=== PATIENT | female | born 1950 | race Caucasian/White ===

== ENCOUNTER 2018-12-29 09:25 | Inpatient (IN) | payer MEDICARE, BC ==
[~2018-12-29] VITALS: Ht 162.6 cm; Wt 111.7 kg
[2018-12-29] MEDS ORDERED: ASPIRIN 81 MG TAB.CHEW PO ONE (09:30)
[2018-12-29 10:01] LABS: BASO % 1 % (0-3); EOS # 0.2 x10^3/uL (0.0-0.7); EOS % 4 % (0-3); HEMATOCRIT 39.5 % (36.0-47.0); HEMOGLOBIN 13.3 g/dL (12.0-15.5); LYMPH # 1.2 x10^3/uL (1.0-4.8); LYMPH % 24 % (24-48); MEAN CORPUSCULAR HEMOGLOBIN 31 pg (25-35); MEAN CORPUSCULAR HGB CONC 34 g/dL (31-37); MEAN CORPUSCULAR VOLUME 93 fL (79-100); MONO # 0.6 x10^3/uL (0.0-1.1); MONO % 12 % (0-9); NEUT # 3.1 x10^3uL (1.8-7.7); NEUT % 60 % (31-73); PLATELET COUNT 264 x10^3/uL (140-400); RED BLOOD COUNT 4.23 x10^6/uL (3.50-5.40); RED CELL DISTRIBUTION WIDTH 13.7 % (11.5-14.5); WHITE BLOOD COUNT 5.2 x10^3/uL (4.0-11.0)
--- NOTE | 2018-12-29 10:02 | PHYS DOC ---
Adult General Chief Complaint Chief Complaint: CHEST PAIN HPI HPI 68-year-old female presents with chest tightness since last night. Just before bed, patient had a mild tightness in her central chest. She decided not to come to the emergency room but to get a good night sleep. She also had elevated blood pressure. This morning, the patient continues to have elevated blood pressure and the chest tightness a bit worse. It is coming and going. It is mild to moderate in intensity. She denies diaphoresis or shortness of breath. He does not currently have pain. She has been stable on her medications for at least 3 months. She did run out of her Lasix 1 day ago and has missed a dose. She has noticed increased swelling. She denies fever or chills. Review of Systems Review of Systems Constitutional: Denies fever or chills [] Eyes: Denies change in visual acuity, redness, or eye pain [] HENT: Denies nasal congestion or sore throat [] Respiratory: Denies cough or shortness of breath [] Cardiovascular: No additional information not addressed in HPI [] GI: Denies abdominal pain, nausea, vomiting, bloody stools or diarrhea [] : Denies dysuria or hematuria [] Musculoskeletal: Denies back pain or joint pain [] Integument: Denies rash or skin lesions [] Neurologic: Denies headache, focal weakness or sensory changes [] Endocrine: Denies polyuria or polydipsia [] All other systems were reviewed and found to be within normal limits, except as documented in this note. Current Medications Current Medications Current Medications Medications (Trade) Dose Ordered Sig/[facility] Start Time Stop Time Status Last Admin Dose Admin Aspirin (Children'S Aspirin) 324 mg 1X ONCE 12/29/18 09:30 12/29/18 09:35 DC 12/29/18 09:34 324 MG Allergies Allergies Allergies Coded Allergies Type Severity Reaction Last Updated Verified No Known Drug Allergies 12/29/18 No Physical Exam Physical Exam Constitutional: Well developed, obese, well nourished, no acute distress, non- toxic appearance. [] HENT: Normocephalic, atraumatic, bilateral external ears normal, oropharynx moist, no oral exudates, nose normal. [] Eyes: PERRLA, EOMI, conjunctiva normal, no discharge. [] Neck: Normal range of motion, no tenderness, supple, no stridor. [] Cardiovascular:Heart rate regular rhythm, no murmur [] Lungs & Thorax: Bilateral breath sounds clear to auscultation [] Abdomen: Bowel sounds normal, soft, no tenderness, no masses, no pulsatile masses. [] Skin: Warm, dry, no erythema, no rash. [] Back: No tenderness, no CVA tenderness. [] Extremities: No tenderness, no cyanosis, no clubbing, ROM intact, 1+ lower leg edema bilaterally. [] Neurologic: Alert and oriented X 3, normal motor function, normal sensory function, no focal deficits noted. [] Psychologic: Affect normal, judgement normal, mood normal. [] Current Patient Data Vital Signs Vital Signs Date Time Temp Pulse Resp B/P (MAP) Pulse Ox O2 Delivery O2 Flow Rate FiO2 12/29/18 09:55 60 16 166/73 (104) 95 Room Air EKG EKG Paced rhythm, rate 61, normal axis, no ST elevations or depressions[] Radiology/Procedures Radiology/Procedures [] Impressions: PORTABLE CHEST 1V History: Chest pain Comparison: None. Findings: No consolidation or pleural effusion. Normal heart size. Left-sided pacemaker. No pneumothorax. Impression: 1. No acute cardiopulmonary process. Electronically signed by: Vladimir Huerta DO (12/29/2018 11:04 AM) [id number] DICTATED AND SIGNED BY: VLADIMIR HUERTA DO DATE: 12/29/18 1104 CC: IGNACIO ARMENDARIZ DO; PCP,CANDIE ~ Course & Med Decision Making Course & Med Decision Making Pertinent Labs and Imaging studies reviewed. (See chart for details) The patient's chest x-rays negative for acute findings. Her labs are unremarkable. Her troponin is negative. EKG does not show significant findings. Her her score is 5. Given this fact, I will admit the patient for chest pain rule out. I spoke with Dr. Peter and he has accepted the patient for admission. The patient is in agreement with this plan. Dragon Disclaimer Dragon Disclaimer This electronic medical record was generated, in whole or in part, using a voice recognition dictation system. The HEART Score for CP Pts HEART Score for Chest Pain: HEART Score for Chest Pain Response (Comments) Value History Moderately Suspicious 1 ECG Nonspecific Repolarizatio 1 Age > 65 2 Risk Factors 1 or 2 Risk Factors 1 Troponin < Normal Limit 0 Total 5 Risk Factors: Risk Factors: DM, Current or recent (<one month) smoker, HTN, HLP, family history of CAD, obesity. Risk Scores: Score 0 - 3: 2.5% MACE over next 6 weeks - Discharge Home Score 4 - 6: 20.3% MACE over next 6 weeks - Admit for Clinical Observation Score 7 - 10: 72.7% MACE over next 6 weeks - Early Invasive Strategies Departure Departure: Impression: Primary Impression: Chest pain Disposition: 09 ADMITTED INPATIENT Admitting Physician: Cindy Peter Condition: STABLE Referrals: PCP,NO (PCP) Problem Qualifiers Primary Impression: Chest pain Chest pain type: precordial pain Qualified Codes: R07.2 - Precordial pain IGNACIO ARMENDARIZ DO Dec 29, 2018 10:02
[2018-12-29 10:25] LABS: ALBUMIN 3.2 g/dL (3.4-5.0); CALCIUM 8.9 mg/dL (8.5-10.1); CREATININE 1.3 mg/dL (0.6-1.0); GFR 40.5; POTASSIUM 3.8 mmol/L (3.5-5.1); TOTAL BILIRUBIN 0.6 mg/dL (0.2-1.0); TOTAL PROTEIN 6.3 g/dL (6.4-8.2)
--- NOTE | 2018-12-29 11:07 | RAD ---
PORTABLE CHEST 1V History: Chest pain Comparison: None. Findings: No consolidation or pleural effusion. Normal heart size. Left-sided pacemaker. No pneumothorax. Impression: 1. No acute cardiopulmonary process. Electronically signed by: Vladimir Trent DO (12/29/2018 11:04 AM) [facility]
[2018-12-29 11:40] LABS: CLARITY,URINE CLOUDY; COLOR,URINE YELLOW
[2018-12-29 11:41] LABS: BACTERIA,URINE MANY /HPF (0-FEW); BILIRUBIN,URINE NEG (NEG); GLUCOSE,URINE NEG (NEG); NITRITE,URINE POS (NEG); SQUAMOUS EPITHELIAL CELL,UR FEW /LPF; UROBILINOGEN,URINE 0.2 mg/dL (0.2 mg/dL)
[2018-12-29] MEDS ORDERED: NITROGLYCERIN SUBLINGUAL 0.4 MG BOTTLE OF 25. SL PRN (11:45)
[2018-12-29] MEDS ORDERED: ONDANSETRON PF 4 MG/2 ML VIAL. IV PRN (11:45)
[2018-12-29] MEDS ORDERED: cefTRIAXone SODIUM 1 GM VIAL ONE (12:02)
[2018-12-29] MEDS ORDERED: IV NORMAL SALINE 50ML 50 ML ONE (12:02)
[2018-12-29 13:07] VITALS: BP 183/101
[2018-12-29] MEDS ORDERED: METO-247 PO (13:47)
[2018-12-29] MEDS ORDERED: GABA100C6 PO (13:47)
[2018-12-29] MEDS ORDERED: ATOR10TA60 PO (13:47)
[2018-12-29] MEDS ORDERED: AMIO100T4 PO (13:47)
[2018-12-29] MEDS ORDERED: DULO60CA98 PO (13:47)
[2018-12-29] MEDS ORDERED: RIVA20TA2 PO (13:47)
[2018-12-29] MEDS ORDERED: FURO20TA3 PO (13:47)
--- NOTE | 2018-12-29 15:25 | NUR ---
NSG NOTE; ADMISSION ADMTI TO ROOM 122 AT 1230 FROM ED VIA CART ACCOMP BY EMS PERSONNEL PT C/O CHEST PRESSURE, SOA AND DIZZINESS SINCE LAST DARSHAN WHICH REOCCURRED THIS AM SO CAME TO ED SHE HAS A CARDIAC HISTORY NO C/O CHEST PAIN AT THIS TIME
[2018-12-29] MEDS: GABAPENTIN 100 MG CAPSULE. PO SCH ×2 (15:59→19:44)
[2018-12-29] MEDS: FUROSEMIDE 20 MG TABLET PO SCH (15:59)
[2018-12-29] MEDS: DULoxetine HCL 60 MG CAPSULE.DR PO SCH (15:59)
[2018-12-29] MEDS: RIVAROXABAN 10 MG TABLET. PO SCH (15:59)
[2018-12-29] MEDS: AMIODARONE HCL 200 MG TABLET PO SCH (16:00)
--- NOTE | 2018-12-29 16:27 | HP ---
ADMIT DATE: 12/29/2018 HISTORY OF PRESENT ILLNESS: The patient is a 68-year-old female patient, who was brought to the Emergency Room with a complaint of chest pain, chest pressure that started this morning. Her blood pressure was high last night and continued to be high this morning. She had also some shortness of breath and she was diaphoretic, dizzy, but denied any nausea or vomiting. Denied any radiation of the pain and was brought to the Emergency Room for further evaluation and treatment. By the time she arrived, her pain has largely subsided. Her medication has not changed over the last 3 months. She was evaluated in the Emergency Room. Her EKG showed that her heart rate was 61. It was a paced rhythm with normal axis, no ST elevation or depression. Her chest x-ray was unremarkable. Her first set of cardiac enzyme was normal at less than 0.017, and was admitted to do 2 more sets of cardiac enzymes, check a fasting lipid profile and consult the cardiology team. PAST MEDICAL HISTORY: Significant for hypertension, hyperlipidemia, atrial fibrillation/flutter, sick sinus syndrome, status post pacemaker placement and she has also obstructive sleep apnea, on CPAP, chronic low back pain, degenerative disk disease and generalized osteoarthritis and also bilateral cataract. PAST SURGICAL HISTORY: Significant for total abdominal hysterectomy, bilateral salpingo-oophorectomy, back surgery, uvulopalatoplasty and she underwent tonsillectomy and 3 cardioversion. ALLERGIES: She has no known drug allergies. MEDICATIONS: She is currently on following medications: She is on rivaroxaban 20 mg once a day, amiodarone 100 mg daily, atorvastatin, calcium 10 mg at bedtime, metoprolol succinate 100 mg once a day, gabapentin 100 mg twice a day, duloxetine 60 mg once a day, furosemide 20 mg once a day. FAMILY HISTORY: She has a brother and a sister who with COPD. One brother was electrocuted. Her mother of complication of cerebrovascular accident. Her father is , but does not know the reason for her . SOCIAL HISTORY: She is , has no children. She never smoked, does not drink alcohol or use any recreational drugs. 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 REVIEW OF SYSTEMS: The patient denied any blurring of vision, cataract, glaucoma or macular degeneration. Denied any earache, tinnitus or sensorineural deafness. Denied any nosebleeds, stuffy nose or postnasal drip. Denied any sore throat, sore tongue, toothache, hoarseness of voice or difficulty swallowing. Denied any nausea, vomiting, diarrhea or constipation. Denied any hematemesis, melena or hematochezia. Denied any dysuria, frequency, hematuria. Did complain of chest pain, shortness of breath as well as dizziness. PHYSICAL EXAMINATION: GENERAL: When I examined her, she looked well and was clearly in no apparent respiratory distress. No pallor, jaundice, cyanosis or thyromegaly. No jugular venous distention. No lower limb edema. VITAL SIGNS: Her heart rate was 60, blood pressure was 166/73, temperature was 97.9, respiratory rate was 18 and oxygen saturation was 97%. HEAD, EYES, EARS, NOSE AND THROAT: Showed normocephalic, atraumatic. NECK: Supple. HEART: Showed normal first and second heart sounds. No gallop or murmur. CHEST: Clear to auscultation. No crepitation or rhonchi. ABDOMEN: Distended, soft, nontender. NEUROLOGIC: She was awake, alert, responding appropriately. All cranial nerves intact. EXTREMITIES: She moves extremities without difficulty. She ambulates without assistance or assistive devices. LABORATORY WORK: Her lab work showed a serum sodium 144, potassium 3.8, chloride 107, bicarbonate 26, anion gap of 11, BUN 13, creatinine 1.3, estimated GFR was 40 mL per minute. Her glucose was 126, calcium was 8.9. Total bilirubin, AST, ALT, alkaline phosphatase slightly elevated. Her beta natriuretic peptide was 147. Total protein was 6.3, albumin 3.2. First set of cardiac enzymes showed troponin to be less than 0.017. Her white cell count was 5200, hemoglobin 13, hematocrit 39, MCV 93, and platelet count 264,000 with normal manual differential. Urinalysis was unremarkable and chest x-ray showed that the patient has no consolidation, pleural effusion, normal heart size. Left-sided pacemaker, no pneumothorax. Plan is to do 2 more sets of cardiac enzymes, check her fasting lipid profile and consult the cardiology team. CALIN FELICIANO MD DR: ALEXI/risa JOB#: [id number] / [id number]
[2018-12-29 19:44] VITALS: BP 181/91
[2018-12-29] MEDS: METOPROLOL SUCC 24HR ER 50 MG TAB.ER.24H. PO SCH (19:44)
[2018-12-29] MEDS: ATORVASTATIN CALCIUM 10 MG TABLET. PO SCH (19:44)
[2018-12-29 20:18] VITALS: BP 167/84
[2018-12-29] MEDS ORDERED: ACETAMINOPHEN 325 MG TABLET PO PRN (21:15)
[2018-12-29 22:40] VITALS: BP 166/79
[2018-12-29 22:41] VITALS: BP 169/102
[2018-12-29 23:32] VITALS: BP 189/98
[2018-12-29] MEDS ORDERED: hydrALAZINE 20 MG/ML VIAL. IV PRN (23:45)
[2018-12-30 01:03] VITALS: BP 146/73
--- NOTE | 2018-12-30 03:50 | EKG ---
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
[2018-12-30 05:51] VITALS: BP 148/79
--- NOTE | 2018-12-30 08:23 | PDOC2 ---
MACHELLE SALTER SEED CORE OPERATOR 12/30/18 0823: CARDIAC CONSULT DATE OF CONSULT Date Of Consult DATE: 12/30/18 TIME: 08:20 REASON FOR CONSULT Reason for Consult Chest pain REFERRING PHYSICIAN Referring Physician Dr. Peter SOURCE Source: Chart review, Patient HPI History of Present Illness This is a 68 yo female who presented with complaints of chest pain. Patient reports pain began Saturday night. Describes as tightness in her central chest. Associated with shortness of breath, diaphoresis, and dizziness. No palpitations. Has a history of AFIB s/p multiple cardioversions and ablations. [place] as she normally does when she goes back into AFIB. Decided to come to the ED for further evaluation and treatment. Pain resolved in the ED and has no pain further since. EKG upon arrival read as AFIB, but appears to be SR. Blood pressure also elevated upon arrival. Follows with [facility]. Dr. Nj and Dr. Graves. Has had swelling for the last 3 weeks in her hands and lower ex tremities. Primary fork lift technician increased her lasix to daily from QOD, but has not had any significant improvement in her edema. She ran out of her Lasix therapy this past Saturday. Reports having stress test about a year ago that she reports as normal. Echo was conducted last week at [facility]. No previous heart cath. Moved her from [place] 3 months ago. Is presently residing with nephew in [place] while awaiting her house to be ready in [place]. PAST MEDICAL HISTORY Cardiovascular: AFIB (s/p CV and ablation ), HTN, hyperipidemia Pulmonary: Other (SIMRAN) Musculoskeletal: Other (chronic back pain) PAST SURGICAL HISTORY Past Surgical History: Pacemaker FAMILY HISTORY Family History: Stroke SOCIAL HISTORY Smoke: No ALCOHOL: occassional Drugs: None Lives: with Family CURRENT MEDICATIONS Current Medications Current Medications Aspirin (Children'S Aspirin) 324 mg 1X ONCE PO Last administered on 12/29/18at 09:34; Start 12/29/18 at 09:30; Stop 12/29/18 at 09:35; Status DC Ondansetron HCl (Zofran) 4 mg PRN Q4HRS PRN IV NAUSEA/VOMITING; Start 12/29/18 at 11:45; Stop 12/30/18 at 11:44 Nitroglycerin (Nitrostat) 0.4 mg PRN Q5MIN PRN SL CHEST PAIN; Start 12/29/18 at 11:45; Stop 12/30/18 at 11:44 Ceftriaxone Sodium 1 gm/ Sodium Chloride 50 ml @ 100 mls/hr 1X ONCE IV Last administered on 12/29/18at 12:07; Start 12/29/18 at 12:00; Stop 12/29/18 at 12:2 9; Status DC Sodium Chloride 50 ml @ As Directed STK-MED ONCE .ROUTE ; Start 12/29/18 at 12:02; Stop 12/29/18 at 12:02; Status DC Ceftriaxone Sodium (Rocephin) 1 gm STK-MED ONCE .ROUTE ; Start 12/29/18 at 12:02; Stop 12/29/18 at 12:02; Status DC Atorvastatin Calcium (Lipitor) 10 mg HS PO Last administered on 12/29/18at 19:44; Start 12/29/18 at 21:00 Duloxetine HCl (Cymbalta) 60 mg DAILY PO Last administered on 12/29/18at 15:59; Start 12/29/18 at 15:00 Furosemide (Lasix) 20 mg DAILY PO Last administered on 12/29/18at 15:59; Start 12/29/18 at 15:00 Gabapentin (Neurontin) 100 mg BID PO Last administered on 12/29/18at 19:44; Start 12/29/18 at 15:00 Amiodarone HCl (Cordarone) 100 mg DAILY PO Last administered on 12/29/18at 16:00; Start 12/29/18 at 15:00 Metoprolol Succinate (Toprol Xl) 100 mg BID PO Last administered on 12/29/18at 19:44; Start 12/29/18 at 21:00 Rivaroxaban (Xarelto) 20 mg DAILY16 PO Last administered on 12/29/18at 15:59; Start 12/29/18 at 16:00 Acetaminophen (Tylenol) 650 mg PRN Q6HRS PRN PO PAIN / TEMP Last administered on 12/30/18at 00:12; Start 12/29/18 at 21:15 Hydralazine HCl (Apresoline) 20 mg PRN Q4HRS PRN IV ELEVATED BP, SEE COMMENTS Last administered on 12/30/18at 00:12; Start 12/29/18 at 23:45 Active Scripts Active Reported Furosemide 20 Mg Tablet 1 Tab PO DAILY Atorvastatin Calcium 10 Mg Tablet 1 Tab PO HS Amiodarone Hcl 100 Mg Tablet 1 Tab PO DAILY Metoprolol Succinate ( Xl ) (Metoprolol Succinate) 100 Mg Tab.er.24h 1 Tab PO BID Gabapentin 100 Mg Capsule 1 Tab PO BID Duloxetine Hcl 60 Mg Capsule.dr 1 Tab PO DAILY Xarelto (Rivaroxaban) 20 Mg Tablet 1 Tab PO DAILY ALLERGIES Allergies: Coded Allergies: No Known Drug Allergies (Unverified , 12/29/18) ROS Review of Systems 14 point ROS conducted with pertinent positives noted above in HPI. PHYSICAL EXAM General: Alert, Oriented X3, Cooperative, No acute distress HEENT: Atraumatic, Mucous membr. moist/pink Lungs: Clear to auscultation, Other (diminished bases) Heart: Regular rate, Normal S1, Normal S2, Other (2/6 systolic murmur ) Abdomen: Soft, No tenderness Extremities: Other (1+ bilateral LE edema ) Skin: No breakdown Neuro: Normal speech, Sensation intact Psych/Mental Status: Mental status NL, Mood NL MUSCULOSKELETAL: Osteoarthritic changes both hands VITALS Vital Signs Vital Signs Date Time Temp Pulse Resp B/P (MAP) Pulse Ox O2 Delivery O2 Flow Rate FiO2 12/30/18 05:51 98.0 60 20 148/79 (102) 99 Nasal Cannula 2.0 LABS LABS Laboratory Tests Test 12/29/18 09:46 12/29/18 11:15 12/29/18 14:45 12/29/18 18:00 White Blood Count 5.2 x10^3/uL (4.0-11.0) Red Blood Count 4.23 x10^6/uL (3.50-5.40) Hemoglobin 13.3 g/dL (12.0-15.5) Hematocrit 39.5 % (36.0-47.0) Mean Corpuscular Volume 93 fL (79-100) Mean Corpuscular Hemoglobin 31 pg (25-35) Mean Corpuscular Hemoglobin Concent 34 g/dL (31-37) Red Cell Distribution Width 13.7 % (11.5-14.5) Platelet Count 264 x10^3/uL (140-400) Neutrophils (%) (Auto) 60 % (31-73) Lymphocytes (%) (Auto) 24 % (24-48) Monocytes (%) (Auto) 12 % (0-9) Eosinophils (%) (Auto) 4 % (0-3) Basophils (%) (Auto) 1 % (0-3) Neutrophils # (Auto) 3.1 x10^3uL (1.8-7.7) Lymphocytes # (Auto) 1.2 x10^3/uL (1.0-4.8) Monocytes # (Auto) 0.6 x10^3/uL (0.0-1.1) Eosinophils # (Auto) 0.2 x10^3/uL (0.0-0.7) Basophils # (Auto) 0.0 x10^3/uL (0.0-0.2) Sodium Level 144 mmol/L (136-145) Potassium Level 3.8 mmol/L (3.5-5.1) Chloride Level 107 mmol/L (98-107) Carbon Dioxide Level 26 mmol/L (21-32) Anion Gap 11 (6-14) Blood Urea Nitrogen 13 mg/dL (7-20) Creatinine 1.3 mg/dL (0.6-1.0) Estimated GFR (Cockcroft-Gault) 40.5 BUN/Creatinine Ratio 10 (6-20) Glucose Level 126 mg/dL (70-99) Calcium Level 8.9 mg/dL (8.5-10.1) Total Bilirubin 0.6 mg/dL (0.2-1.0) Aspartate Amino Transf (AST/SGOT) 21 U/L (15-37) Alanine Aminotransferase (ALT/SGPT) 27 U/L (14-59) Alkaline Phosphatase 139 U/L (46-116) Troponin I Quantitative < 0.017 ng/mL (0-0.055) < 0.017 ng/mL (0-0.055) < 0.017 ng/mL (0-0.055) KZ-Eor-P-Type Natriuretic Peptide 447 pg/mL (0-124) Total Protein 6.3 g/dL (6.4-8.2) Albumin 3.2 g/dL (3.4-5.0) Albumin/Globulin Ratio 1.0 (1.0-1.7) Urine Collection Type Unknown Urine Color Yellow Urine Clarity Cloudy Urine pH 6.0 Urine Specific [place] 1.025 Urine Protein Neg (NEG-TRACE) Urine Glucose (UA) Neg mg/dL (NEG) Urine Ketones (Stick) Neg mg/dL (NEG) Urine Blood Small (NEG) Urine Nitrite Pos (NEG) Urine Bilirubin Neg (NEG) Urine Urobilinogen Dipstick 0.2 mg/dL (0.2 mg/dL) Urine Leukocyte Esterase Neg (NEG) Urine RBC 3-5 /HPF (0-2) Urine WBC 5-10 /HPF (0-4) Urine Squamous Epithelial Cells Few /LPF Urine Bacteria Many /HPF (0-FEW) ASSESSMENT/PLAN Assessment/Plan 1. Chest pain, mixed features; AMI ruled out. Patient reports symptoms to be consistent with when she has previously went back into AFIB 2. PAFIB s/p CV and ablation. On Amiodarone therapy. Presently SR 3. Pacemaker in situ ([employer]) 4. Accelerated hypertension; remains mildly elevated 5. Mild acute on chronic probable diastolic CHF 6. Hyperlipidemia; statin 7. ? CKD 8. UTI Recommendations Mild diuresis Resume Amiodarone and metoprolol for rhythm/rate control Xarelto for stroke prevention Device interrogation Obtain cardiac records from [facility] including echocardiogram conducted last week Monitor tele. Resume home antiHTN therapy and titrate as warranted. Add lisinopril if remains elevated Hydralazine IV PRN Consider outpatient ischemic workup. ANTHONY ARANA MD 12/30/181931: CARDIAC CONSULT ASSESSMENT/PLAN Assessment/Plan Patient seen and examined. Agree with RENAL SOCIAL WORKER's assessment and plan CP with mixed features TX ruled out PAF s/p ablation, presently in SR. Continue amiodarone for rhythm maintenance and xarelto for stroke prophylaxis BP better controlled Acute on chr diastolic better compensated Plan ischemic evaluation with primary fork lift technician as outpatient Thank you for your consultation MACHELLE SALTER APRN Dec 30, 2018 08:23 ANTHONY ARANA MD Dec 30, 2018 19:32
[2018-12-30] MEDS: METOPROLOL SUCC 24HR ER 50 MG TAB.ER.24H. PO SCH ×2 (08:26→20:13)
[2018-12-30] MEDS: DULoxetine HCL 60 MG CAPSULE.DR PO SCH (08:26)
[2018-12-30] MEDS: GABAPENTIN 100 MG CAPSULE. PO SCH ×2 (08:27→20:13)
[2018-12-30] MEDS: FUROSEMIDE 20 MG TABLET PO SCH (08:28)
[2018-12-30] MEDS: AMIODARONE HCL 200 MG TABLET PO SCH (08:29)
[2018-12-30] MEDS ORDERED: HYDROcodone/APAP 5/325MG 1 TAB TABLET PO ONE (10:00)
[2018-12-30 10:37] VITALS: BP 146/71
[2018-12-30] MEDS ORDERED: POTASSIUM CHLORIDE 20 MEQ TABLET.ER. PO ONE (12:00)
[2018-12-30] MEDS ORDERED: FUROSEMIDE 40 MG/4 ML VIAL IVP ONE (12:00)
[2018-12-30 14:47] VITALS: BP 136/69
[2018-12-30] MEDS: RIVAROXABAN 10 MG TABLET. PO SCH (16:09)
[2018-12-30 19:38] VITALS: BP 132/76
[2018-12-30] MEDS: ATORVASTATIN CALCIUM 10 MG TABLET. PO SCH (20:13)
[2018-12-30] MEDS: NYSTATIN TOPICAL POWDER 15GM BOTTLE. TP SCH (20:15)
[2018-12-30 23:32] VITALS: BP 125/74
--- NOTE | 2018-12-31 00:50 | PN ---
DATE: 12/30/2018 SUBJECTIVE: The patient is resting, slightly propped up in bed, in no apparent distress. Her blood pressure was extremely high last night and developed headache. We have to give her IV hydralazine to bring it down. She did have 3 sets of cardiac enzymes that ruled out myocardial infarction. She apparently has had an echocardiogram done last week at [facility] and therefore, a decision was made to continue monitoring her for one more night to make sure that her blood pressure does not rise up again and if it does, we will start her on oral hydralazine. Hopefully, tomorrow, we have all the records to make a final decision and can be discharged. PHYSICAL EXAMINATION: GENERAL: When I examined her this afternoon, she looked well and was clearly in no apparent respiratory distress. There was no pallor, jaundice, cyanosis or thyromegaly. No jugular venous distension. No lower limb edema. VITAL SIGNS: Her heart rate was 61, blood pressure was 146/73, temperature was 98.1, respiratory rate was 20, and oxygen saturation was 96%. HEAD, EYES, EARS, NOSE AND THROAT: Showed normocephalic, atraumatic. NECK: Supple. HEART: Showed normal first and second heart sounds. No gallop or murmur. CHEST: Clear to auscultation. No crepitation or rhonchi. ABDOMEN: Distended, soft, nontender. NEUROLOGIC: She is awake, alert, responding appropriately. All cranial nerves intact. She moves extremities without difficulty. She ambulates without assistance or assistive devices. She has 3 sets of cardiac enzymes that ruled out myocardial infarction. Her hemoglobin 13, hematocrit 39 with normal white cell count and platelets. Her chemistry is stable. ASSESSMENT: 1. Chest pain, atypical, acute myocardial infarction was ruled out. 2. Paroxysmal atrial fibrillation, status post cardioversion and ablation, on amiodarone, currently in sinus rhythm. The patient has sick sinus syndrome for which she has a permanent pacemaker. It was interrogated and apparently functioning very well. 3. Accelerated hypertension, much improved. 4. Hyperlipidemia. My plan is to continue monitoring her heart and continued to be elevated. We will start her on oral hydralazine. Once we have the records from [place] tomorrow, decision will be made on discharge summary and further evaluation as an outpatient. CALIN FELICIANO MD DR: [place] JOB#: [id number] / [id number]
[2018-12-31 06:01] VITALS: BP 162/80
[2018-12-31 06:59] LABS: CALCIUM 8.7 mg/dL (8.5-10.1); CREATININE 1.3 mg/dL (0.6-1.0); GFR 40.5; POTASSIUM 3.9 mmol/L (3.5-5.1)
[2018-12-31] MEDS: DULoxetine HCL 60 MG CAPSULE.DR PO SCH (08:12)
[2018-12-31] MEDS: METOPROLOL SUCC 24HR ER 50 MG TAB.ER.24H. PO SCH (08:12)
[2018-12-31] MEDS: FUROSEMIDE 20 MG TABLET PO SCH (08:12)
[2018-12-31] MEDS: NYSTATIN TOPICAL POWDER 15GM BOTTLE. TP SCH (08:12)
[2018-12-31] MEDS: GABAPENTIN 100 MG CAPSULE. PO SCH (08:12)
[2018-12-31] MEDS: AMIODARONE HCL 200 MG TABLET PO SCH (08:13)
--- NOTE | 2018-12-31 08:21 | PDOC ---
CARDIO Progress Notes Date & Time Date of Service DATE: 12/31/18 TIME: 08:18 Time of Evaluation 08:18 Subjective Notes No chest pain, dizziness, diaphoresis, or nausea/vomiting. Vitals Vitals Vital Signs Date Time Temp Pulse Resp B/P (MAP) Pulse Ox O2 Delivery O2 Flow Rate FiO2 12/31/18 08:13 60 162/80 12/31/18 06:01 97.6 18 100 Nasal Cannula 2.0 Weight Weight [ ] Input and Output I.O. Intake and Output 12/31/18 06:59 Intake Total 1080 ml Balance 1080 ml Intake Oral 1080 ml # Voids 2 Laboratory Labs Laboratory Tests Test 12/29/18 09:46 12/29/18 11:15 12/29/18 14:45 12/29/18 18:00 White Blood Count 5.2 x10^3/uL (4.0-11.0) Red Blood Count 4.23 x10^6/uL (3.50-5.40) Hemoglobin 13.3 g/dL (12.0-15.5) Hematocrit 39.5 % (36.0-47.0) Mean Corpuscular Volume 93 fL (79-100) Mean Corpuscular Hemoglobin 31 pg (25-35) Mean Corpuscular Hemoglobin Concent 34 g/dL (31-37) Red Cell Distribution Width 13.7 % (11.5-14.5) Platelet Count 264 x10^3/uL (140-400) Neutrophils (%) (Auto) 60 % (31-73) Lymphocytes (%) (Auto) 24 % (24-48) Monocytes (%) (Auto) 12 % (0-9) Eosinophils (%) (Auto) 4 % (0-3) Basophils (%) (Auto) 1 % (0-3) Neutrophils # (Auto) 3.1 x10^3uL (1.8-7.7) Lymphocytes # (Auto) 1.2 x10^3/uL (1.0-4.8) Monocytes # (Auto) 0.6 x10^3/uL (0.0-1.1) Eosinophils # (Auto) 0.2 x10^3/uL (0.0-0.7) Basophils # (Auto) 0.0 x10^3/uL (0.0-0.2) Sodium Level 144 mmol/L (136-145) Potassium Level 3.8 mmol/L (3.5-5.1) Chloride Level 107 mmol/L (98-107) Carbon Dioxide Level 26 mmol/L (21-32) Anion Gap 11 (6-14) Blood Urea Nitrogen 13 mg/dL (7-20) Creatinine 1.3 mg/dL (0.6-1.0) Estimated GFR (Cockcroft-Gault) 40.5 BUN/Creatinine Ratio 10 (6-20) Glucose Level 126 mg/dL (70-99) Calcium Level 8.9 mg/dL (8.5-10.1) Total Bilirubin 0.6 mg/dL (0.2-1.0) Aspartate Amino Transf (AST/SGOT) 21 U/L (15-37) Alanine Aminotransferase (ALT/SGPT) 27 U/L (14-59) Alkaline Phosphatase 139 U/L (46-116) Troponin I Quantitative < 0.017 ng/mL (0-0.055) < 0.017 ng/mL (0-0.055) < 0.017 ng/mL (0-0.055) [id number]-[id number]-Type Natriuretic Peptide 447 pg/mL (0-124) Total Protein 6.3 g/dL (6.4-8.2) Albumin 3.2 g/dL (3.4-5.0) Albumin/Globulin Ratio 1.0 (1.0-1.7) Urine Collection Type Unknown Urine Color Yellow Urine Clarity Cloudy Urine pH 6.0 Urine Specific [place] 1.025 Urine Protein Neg (NEG-TRACE) Urine Glucose (UA) Neg mg/dL (NEG) Urine Ketones (Stick) Neg mg/dL (NEG) Urine Blood Small (NEG) Urine Nitrite Pos (NEG) Urine Bilirubin Neg (NEG) Urine Urobilinogen Dipstick 0.2 mg/dL (0.2 mg/dL) Urine Leukocyte Esterase Neg (NEG) Urine RBC 3-5 /HPF (0-2) Urine WBC 5-10 /HPF (0-4) Urine Squamous Epithelial Cells Few /LPF Urine Bacteria Many /HPF (0-FEW) Test 12/30/18 06:07 12/31/18 06:40 Triglycerides Level 325 mg/dL (0-150) Cholesterol Level 282 mg/dL (0-200) LDL Cholesterol, Calculated 176 mg/dL (0-100) VLDL Cholesterol, Calculated 65 mg/dL (0-40) Non-HDL Cholesterol Calculated 241 mg/dL (0-129) HDL Cholesterol 41 mg/dL (40-60) Cholesterol/HDL Ratio 6.0 Sodium Level 140 mmol/L (136-145) Potassium Level 3.9 mmol/L (3.5-5.1) Chloride Level 104 mmol/L (98-107) Carbon Dioxide Level 26 mmol/L (21-32) Anion Gap 10 (6-14) Blood Urea Nitrogen 21 mg/dL (7-20) Creatinine 1.3 mg/dL (0.6-1.0) Estimated GFR (Cockcroft-Gault) 40.5 Glucose Level 105 mg/dL (70-99) Calcium Level 8.7 mg/dL (8.5-10.1) Physical Exams HEENT: Neck Supple W Full Motion Chest: Symmetric Lungs: Clear to Auscultation Heart: S1S2, RRR Abdomen: Soft N/T Extremities: Other (trace LE edema bilaterally) Neurology: alert, oriented, follow commands Assessment Assessment 1. Chest pain, mixed features; AMI ruled out. Patient reports symptoms to be consistent with when she has previously went back into AFIB, but device quick look interrogation shows only 3 episode of AFIB since 12/12/18 with longest episode lasting only 68 minutes. Pain more than 1hr in duration. No further pain since admission. 2. PAFIB s/p ablation. On Amiodarone therapy. Maintaining SR 3. Pacemaker in situ ([employer]) 4. Accelerated hypertension; remains mildly elevated 5. Mild acute on chronic probable diastolic CHF; better compensated 6. Hyperlipidemia; statin. Lipids not on goal 7. CKD; CR stable 8. UTI Recommendations Resume oral lasix Continue Amiodarone and metoprolol for rhythm/rate control Xarelto for stroke prophylaxis Increase Lipitor Add lisinopril for better blood pressure control Add ASA Awaiting OSH records Plan for outpatient ischemic workup with primary hospice patient care secretary as an outpatient MACHELLE SALTER APRN Dec 31, 2018 08:21
[2018-12-31] MEDS ORDERED: LISINOPRIL 10 MG TABLET PO SCH (09:00)
[2018-12-31 10:40] VITALS: BP 134/75
[2018-12-31] MEDS ORDERED: LISI10TA2 PO (11:28)
--- NOTE | 2018-12-31 12:04 | NUR ---
NURSING NOTES: PATIENT DISCHARGED TO HOME. FAMILY HERE TO TAKE PATIENT HOME PER FAMILY VEHICLE. PATIENT GIVEN WRITTEN PRESCRIPTIONS FOR LISINOPRIL, LASIX, AND LIPITOR. ALL DISCHARGE INSTRUCTIONS GIVEN TO PATIENT AND VOICED UNDERSTANDING.
--- NOTE | 2018-12-31 12:46 | DS ---
DATE OF DISCHARGE: 12/31/2018 HOSPITAL COURSE: The patient is a 68-year-old female patient, who was admitted with chest pain and accelerated hypertension. She has had 3 sets of cardiac enzymes that ruled out acute myocardial infarction. 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 PHYSICAL EXAMINATION: GENERAL: When I saw her this morning, she looked well and was clearly in no apparent respiratory distress. No pallor, jaundice, cyanosis, or thyromegaly. No jugular venous distention. No limb edema. VITAL SIGNS: Her heart rate was 65, blood pressure was 134/75, temperature was 97.7, respiratory rate 20, and oxygen saturation was 95% on room air. HEAD, EYES, EARS, NOSE, AND THROAT: Normocephalic, atraumatic. NECK: Supple. HEART: Showed normal first and second heart sounds. No gallop, rub, or murmur. CHEST: Clear to auscultation. No crepitation or rhonchi. ABDOMEN: Distended, soft, nontender. No guarding or rigidity. No organomegaly. All hernial orifice intact. Bowel sounds normal. NEUROLOGIC: She was awake, alert, responding appropriately. All cranial nerves intact. EXTREMITIES: She moves extremities without difficulty. She ambulates without assistance or assistive devices. LABORATORY DATA: Her lab work showed her white cell count to be 5200, hemoglobin 13, hematocrit 39, MCV 93, and platelet count 264,000. Serum sodium was 140, potassium 3.9, chloride 104, bicarbonate 26, anion gap of 10, BUN 21, creatinine 1.3, estimated GFR was 40 mL per minute. Her glucose was 105, calcium was 8.7. Her serum triglycerides were 325. Total cholesterol was 282, LDL cholesterol 176, VLDL was 65, HDL cholesterol was 41 and ratio was 6. DISCHARGE MEDICATIONS: She will be discharged home to continue on atorvastatin 40 mg at bedtime, lisinopril 10 mg once a day, metoprolol succinate 100 mg twice a day, rivaroxaban 20 mg once a day, amiodarone 100 mg once a day, gabapentin 100 mg twice a day, furosemide 20 mg once a day, and duloxetine 60 mg once a day. FINAL DISCHARGE DIAGNOSES: 1. Chest pain, atypical, acute myocardial infarction was ruled out. 2. Paroxysmal atrial fibrillation, status post cardioversion ablation, on amiodarone, currently in sinus rhythm. 3. The patient has sick sinus syndrome for which she has a permanent pacemaker that was interrogated and apparently functioning very well. 4. Accelerated hypertension, much improved. 5. Hyperlipidemia for which her atorvastatin was increased to 40 mg once a day. 6. Mild [id number], probably diastolic congestive heart failure and chronic kidney disease with stable creatinine. The patient was given a prescription for lisinopril 10 mg once a day and Lasix 20 mg once a day as well as Lipitor that is increased to 40 mg at bedtime. CALIN FELICIANO MD DR: ALEXI/risa JOB#: [id number] / [id number]
[2018-12-31] MEDS ORDERED: ATORVASTATIN CALCIUM 20 MG TABLET PO SCH (21:00)
== END 2018-12-31 12:07 | disposition home or self-care (01) | DRG 291 ==
LOC: ER 09:25 → 1 SOUTH 12:21
PROVIDERS: ADMIT Internal Medicine; ATTEND Internal Medicine
DX: I13.0 Hypertensive heart and chronic kidney disease with heart failure and stage 1 through stage 4 chronic kidney disease, or unspecified chronic kidney disease (principal); I50.33 Acute on chronic diastolic (congestive) heart failure; N39.0 Urinary tract infection, site not specified; R07.89 Other chest pain; E78.5 Hyperlipidemia, unspecified; I49.5 Sick sinus syndrome; Z95.0 Presence of cardiac pacemaker; G47.33 Obstructive sleep apnea (adult) (pediatric); G89.29 Other chronic pain; M15.9 Polyosteoarthritis, unspecified; Z90.710 Acquired absence of both cervix and uterus; Z82.5 Family history of asthma and other chronic lower respiratory diseases; Z82.3 Family history of stroke; Z79.899 Other long term (current) drug therapy; I48.0 Paroxysmal atrial fibrillation; N18.9 Chronic kidney disease, unspecified
CPT/HCPCS: 36415; 71045; 80048; 80053; 80061; 81001; 83880; 84443; 84484; 85025; 87086; 87186; 93005; 96374; J0360; J0696; J1940; 99285-25